=== PATIENT | male | born 1990 | race Caucasian/White ===

== ENCOUNTER 2017-01-20 17:59 | Emergency (ER) | payer BC ==
[2017-01-20] MEDS ORDERED: ALBUTEROL 8 GM INHALER INH STA (20:12)
[2017-01-20] MEDS ORDERED: ALBUTEROL NEB 2.5 MG/3 ML INH STA (20:12)
[2017-01-20] MEDS ORDERED: AZITHROMYCIN 250 MG TABLET PO STA (20:13)
[2017-01-20] MEDS ORDERED: predniSONE 20 MG TABLET PO STA (20:13)
[2017-01-20] MEDS ORDERED: predniSONE 20 MG TABLET ONE (20:17)
[2017-01-20] MEDS ORDERED: AZITHROMYCIN 250 MG TABLET PO ONE (20:17)
[2017-01-20] MEDS ORDERED: ALBUTEROL 8 GM INHALER INH ONE (20:26)
[2017-01-20] MEDS ORDERED: ALBUTEROL NEB 2.5 MG/3 ML INH ONE (20:26)
== END 2017-01-20 21:05 | disposition home or self-care (01) ==
DX: J18.9 Pneumonia, unspecified organism (principal); J45.21 Mild intermittent asthma with (acute) exacerbation; R03.0 Elevated blood-pressure reading, without diagnosis of hypertension; F17.200 Nicotine dependence, unspecified, uncomplicated
CPT/HCPCS: 71020; 94640; 94664; 99283; 99284; A9270; J7512; J7613

== ENCOUNTER 2017-02-10 19:34 | Emergency (ER) | payer BC ==
[2017-02-10] MEDS ORDERED: ALBUTEROL NEB 2.5 MG/3 ML INH STA (20:01)
[2017-02-10] MEDS ORDERED: predniSONE 20 MG TABLET PO STA (20:02)
--- NOTE | 2017-02-10 20:07 | ED Physician Documentation ---
PD HPI URI - Stated complaint Stated Complaint: SOA - Chief complaint Chief Complaint: Resp - History obtained from History obtained from: Patient - History of Present Illness Timing - onset: How many weeks ago (2) Timing duration: Weeks (2) Timing details: Gradual onset, Still present Pain level max: 0 Pain level now: 0 Associated symptoms: Nasal congestion, Rhinorrhea, Dry cough, Dyspnea (wheezing) . No: Fever, Chills, Sore throat, Chest pain Contributing factors: Sick contact Improves by: Rest, Medication (prednisone), MDI/nebulizer Worsened by: Activity Recently seen: Emergency Dept (recently seen and treated for pneumonia.) Review of Systems Constitutional: denies: Fever, Chills Ears: denies: Ear pain Nose: reports: Rhinorrhea / runny nose, Congestion Cardiac: denies: Chest pain / pressure Respiratory: reports: Cough, Wheezing GI: denies: Abdominal Pain, Nausea, Vomiting, Diarrhea Skin: denies: Rash Musculoskeletal: denies: Neck pain, Back pain Neurologic: denies: Headache PD PAST MEDICAL HISTORY - Past Medical History Past Medical History: Yes Respiratory: Asthma, Pneumonia - Past Surgical History Past Surgical History: Yes HEENT: Tonsil/Adenoidectomy - Present Medications Home Medications: Ambulatory Orders Medication Instructions Recorded Confirmed Albuterol Sulfate [Proventil Hfa 1 - 2 puffs IH Q4H PRN #1 01/20/17 02/10/17 Inhaler] [email or web address] Montelukast Sodium 10 mg PO DAILY #30 tablet 01/20/17 02/10/17 Albuterol Sulf [Ventolin Hfa 2 puffs INH Q4HR PRN #1 inhaler 02/10/17 Inhaler] Prednisone 40 mg PO DAILY #14 tablet 02/10/17 - Allergies Allergies/Adverse Reactions: Allergies Allergy/AdvReac Type Severity Reaction Status Date / Time fluticasone propionate * Allergy Hives Verified 02/10/17 19:38 [From Advair Diskus] salmeterol xinafoate * Allergy Hives Verified 02/10/17 19:38 [From Advair Diskus] - Social History Does the pt smoke?: Yes Smoking Status: Current every day smoker Does the pt drink ETOH?: No Does the pt have substance abuse?: No - Immunizations Immunizations are current?: Yes - POLST Patient has POLST: No PD ED PE NORMAL - Vitals Vital signs reviewed: Yes - General General: Alert and oriented X 3 - HEENT HEENT: PERRL, Ears normal, Moist mucous membranes, Pharynx benign - Neck Neck: Supple, no meningeal sign - Cardiac Cardiac: RRR - Respiratory Respiratory: No respiratory distress, Other (wheezing B) - Abdomen Abdomen: Soft, Non tender, Non distended - Derm Derm: Warm and dry - Neuro Neuro: Alert and oriented X 3 - Psych Psych: Normal mood, Normal affect Results - Vitals Vitals: Vital Signs - 24 hr 02/10/17 02/10/17 02/10/17 19:36 20:19 20:51 Temperature 36.2 C L Heart Rate 118 H 87 104 H Respiratory 18 18 18 Rate Blood Pressure 152/88 H 124/74 O2 Saturation 100 96 Oxygen O2 Source Room air - Rads (name of study) cxr Radiology: Prelim report reviewed, EMP read contemporaneously, See rad report ( Bibasilar bronchial wall thickening, could represent inflammatory or infectious bronchitis.) PD MEDICAL DECISION MAKING - ED course Complexity details: reviewed results, re-evaluated patient, considered differential, d/w patient ED course: Patient presents to the emergency department with what appears to be an upper respiratory infection causing an asthma exacerbation. Lungs improved after nebulizer treatment here. Will place on steroids for home. We will have him follow-up with his doctor for further evaluation and care. Prior pneumonia in the lingula has now cleared. No fevers. No hypoxia. Will hold antibiotics. Patient counseled regarding signs and symptoms for which I believe and urgent re -evaluation would be necessary. Patient with good understanding of and agreement to plan and is comfortable going home at this time This document was made in part using voice recognition software. While efforts are made to proofread this document, sound alike and grammatical errors may occur. Departure - Departure Disposition: 01 Home, Self Care Clinical Impression: Asthma Qualifiers: Asthma severity: unspecified severity Asthma complication type: with acute exacerbation Qualified Code(s): J45.901 - Unspecified asthma with (acute) exacerbation Upper respiratory tract infection Qualifiers: URI type: unspecified viral URI Qualified Code(s): J06.9 - Acute upper respiratory infection, unspecified Condition: Good Instructions: ED URI Viral Follow-Up: your,doctor in 1 week [Other] Prescriptions: Albuterol Sulf [Ventolin Hfa Inhaler] 2 puffs INH Q4HR PRN #1 inhaler PRN Reason: Wheezing Prednisone 40 mg PO DAILY #14 tablet Comments: Return if you worsen. Your pneumonia has cleared on your xray. Your blood pressure was elevated today on check in to the emergency department. This does not mean that you have hypertension, it is a common phenomenon to check into the emergency department and have elevated blood pressure. I recommend that you see your primary care physician within the week to have it rechecked when you're feeling better. Discharge Date/Time: 02/10/17 20:52
[2017-02-10] MEDS ORDERED: predniSONE 20 MG TABLET ONE (20:11)
[2017-02-10] MEDS ORDERED: ALBUTEROL NEB 2.5 MG/3 ML INH ONE (20:14)
--- NOTE | 2017-02-10 20:39 | XRAY Preliminary Report ---
Exam: XR Chest 2 View PA/LAT IMPRESSION: Bibasilar bronchial wall thickening, which could represent inflammatory or infectious bro nchitis. [facility] SITE ID: [id number]
--- NOTE | 2017-02-10 20:41 | XRAY Report ---
EXAM: CHEST RADIOGRAPHY EXAM DATE: 02/10/2017 08:14 PM. CLINICAL HISTORY: Cough and wheezing. COMPARISON: 01/20/2017. TECHNIQUE: 2 views. FINDINGS: Lungs/Pleura: Normal volumes. Bibasilar bronchial wall thickening. No focal consolidation, pleural ef fusion, or pneumothorax. Mediastinum: Normal cardiomediastinal contour. Other: The bones are unremarkable. IMPRESSION: Bibasilar bronchial wall thickening, which could represent inflammatory or infectious bro nchitis. [facility] Referring Provider Line: [phone] SITE ID: [id number]
[2017-02-10 20:51] VITALS: BP 124/74
== END 2017-02-10 20:52 | disposition home or self-care (01) ==
LOC: ED 19:34
DX: J45.901 Unspecified asthma with (acute) exacerbation (principal); J06.9 Acute upper respiratory infection, unspecified; B97.89 Other viral agents as the cause of diseases classified elsewhere; R03.0 Elevated blood-pressure reading, without diagnosis of hypertension; F17.200 Nicotine dependence, unspecified, uncomplicated
CPT/HCPCS: 71020; 94640; 99283; J7512; J7613

== ENCOUNTER 2018-07-30 05:30 | Emergency (ER) | payer BC, OTHER ==
[2018-07-30 05:39] VITALS: BP 134/75
[2018-07-30] MEDS ORDERED: cefTRIAXone 1 GM VIAL IM STA (05:52)
[2018-07-30] MEDS ORDERED: SULFAMETH/TRIMETH DS 800/160 MG TABLET PO STA (05:52)
[2018-07-30] MEDS ORDERED: LIDOCAINE 1% 2 ML VIAL SUBQ ONE (05:52)
--- NOTE | 2018-07-30 05:54 | ED Physician Documentation ---
History of Present Illness - Stated complaint Stated Complaint: LT LEG CELLULITIS WORSENED - Chief complaint Chief Complaint: Wound - History obtained from History obtained from: Patient - History of Present Illness Timing: How many days ago (several) Pain level max: 3 Pain level now: 3 - Additonal information Additional information: Patient is a 27-year-old male who presents to the emergency department with left lower extremity cellulitis diagnosed 2 days ago at a clinic. States the redness is worsening. He is on doxycycline currently. No fevers. No drainage. 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 Patient states his tetanus is up-to-date. Nothing makes it better or worse Review of Systems Constitutional: denies: Fever, Chills GI: denies: Vomiting Musculoskeletal: denies: Neck pain, Back pain PD PAST MEDICAL HISTORY - Past Medical History Past Medical History: Yes Respiratory: Asthma, Pneumonia - Past Surgical History Past Surgical History: Yes HEENT: Tonsil/Adenoidectomy - Present Medications Home Medications: Ambulatory Orders Medication Instructions Recorded Confirmed Cephalexin [Keflex] 500 mg PO Q6H #40 capsule 07/30/18 Sulfamethox/Trimeth 800/160 1 each PO BID #20 tablet 07/30/18 [Bactrim Ds 800/160] - Allergies Allergies/Adverse Reactions: Allergies Allergy/AdvReac Type Severity Reaction Status Date / Time fluticasone propionate * Allergy Hives Verified 07/30/18 05:35 [From Advair Diskus] salmeterol xinafoate * Allergy Hives Verified 07/30/18 05:35 [From Advair Diskus] - Social History Does the pt smoke?: Yes Smoking Status: Current every day smoker Does the pt drink ETOH?: No Does the pt have substance abuse?: No - Immunizations Immunizations are current?: Yes - POLST Patient has POLST: No PD ED PE NORMAL - Vitals Vital signs reviewed: Yes - General General: Alert and oriented X 3, No acute distress - HEENT HEENT: Moist mucous membranes - Derm Derm: Warm and dry - Extremities Extremities: Other (Left lower extremity - There is a 2 cm in diameter erythematous area, deep red that is mildly swollen. A scab is present in the middle. There is also a roofing layer surrounding erythema that is approximately 10 x 12 cm. This is over the left tibial area. The deep red portion is in the proximal aspect. Neurovascularly intact. No drainage) - Neuro Neuro: Alert and oriented X 3 - Psych Psych: Normal mood, Normal affect Results - Vitals Vitals: Vital Signs - 24 hr 07/30/18 05:35 Temperature 36.1 C L Heart Rate 115 H Respiratory 18 Rate Blood Pressure 134/75 H O2 Saturation 100 Oxygen O2 Source Room air PD MEDICAL DECISION MAKING - ED course Complexity details: considered differential, d/w patient ED course: Patient is a 27-year-old male who presents to the emergency department with what appears to be cellulitis and likely an early abscess. Bedside ultrasound was used and there is no drainable abscess at this time. Also no visible foreign body. Given Rocephin here and will change to Bactrim and Keflex. Patient counseled regarding signs and symptoms for which I believe and urgent re- evaluation would be necessary. Patient with good understanding of and agreement to plan and is comfortable going home at this time This document was made in part using voice recognition software. While efforts are made to proofread this document, sound alike and grammatical errors may occur. Departure - Departure Disposition: 01 Home, Self Care Clinical Impression: Cellulitis Qualifiers: Site of cellulitis: extremity Site of cellulitis of extremity: lower extremity Laterality: left Qualified Code(s): L03.116 - Cellulitis of left lower limb Condition: Good Instructions: ED Infec Skin Cellulitis Follow-Up: your,doctor in 2-3 days for wound check [Other] Prescriptions: Cephalexin [Keflex] 500 mg PO Q6H #40 capsule Sulfamethox/Trimeth 800/160 [Bactrim Ds 800/160] 1 each PO BID #20 tablet Comments: Stop the doxycycline and start the Bactrim and Keflex. Return if you worsen. This should improve over the next 24-36 hours. If you develop fevers or worsening redness, return for further evaluation. Discharge Date/Time: 07/30/18 06:04
== END 2018-07-30 06:04 | disposition home or self-care (01) ==
LOC: ED 05:30
DX: L03.116 Cellulitis of left lower limb (principal); F17.200 Nicotine dependence, unspecified, uncomplicated
CPT/HCPCS: 96372; 99283; A9270

== ENCOUNTER 2019-05-14 17:30 | Emergency (ER) | payer MEDICAID, OTHER ==
[2019-05-14 17:48] VITALS: BP 154/86
--- NOTE | 2019-05-14 20:18 | ED Physician Documentation ---
History of Present Illness - Stated complaint Stated Complaint: CANNOT OPEN L HAND - Chief complaint Chief Complaint: Ext Problem - History obtained from History obtained from: Patient - History of Present Illness Timing: Today - Additonal information Additional information: Patient is a right-handed 28-year-old male with previous carpal tunnel surgery and trigger finger release presenting with decrease in extension of third, fourth, and fifth fingers of the left hand. Patient reports that he awkwardly slept on the hand earlier today and it originally had paresthesias, which have now resolved.Patient denies other bony pain or deformity, well as any decrease in type mapper strength. No signs of infection or other skin changes. No other injury. No other improving or worsening factors noted. Review of Systems Musculoskeletal: denies: Extremity pain, Extremity swelling Neurologic: denies: Focal weakness, Numbness PD PAST MEDICAL HISTORY - Past Medical History Respiratory: Asthma, Pneumonia - Past Surgical History Past Surgical History: Yes HEENT: Tonsil/Adenoidectomy - Present Medications Home Medications: Ambulatory Orders Medication Instructions Recorded Confirmed No Known Home Medications 05/14/19 05/14/19 - Allergies Allergies/Adverse Reactions: Allergies Allergy/AdvReac Type Severity Reaction Status Date / Time fluticasone propionate * Allergy Hives Verified 07/30/18 05:35 [From Advair Diskus] salmeterol xinafoate * Allergy Hives Verified 05/14/19 17:48 [From Advair Diskus] - Social History Does the pt smoke?: Yes Smoking Status: Current every day smoker Does the pt drink ETOH?: No Does the pt have substance abuse?: No - Immunizations Immunizations are current?: Yes - POLST Patient has POLST: No PD ED PE NORMAL - Vitals Vital signs reviewed: Yes - General General: Alert and oriented X 3, No acute distress, Well developed/nourished - HEENT HEENT: Atraumatic, Moist mucous membranes - Neck Neck: Supple, no meningeal sign - Cardiac Cardiac: Strong equal pulses - Respiratory Respiratory: No respiratory distress - Derm Derm: Normal color, Warm and dry, No rash - Extremities Extremities: No deformity, No tenderness to palpate, Other (Left hand with intact type mapper strength, full range of motion except for slight decrease in extension of left third, fourth, and fifth fingers with intact sensation. Remainder of extremity unremarkable.) - Neuro Neuro: Alert and oriented X 3, No motor deficit, No sensory deficit - Psych Psych: Normal mood, Normal affect Results - Vitals Vitals: Vital Signs - 24 hr 05/14/19 17:46 Temperature 36.8 C Heart Rate 80 Respiratory 20 Rate Blood Pressure 154/86 H O2 Saturation 99 Oxygen O2 Source Room air PD MEDICAL DECISION MAKING - ED course Complexity details: considered differential, d/w patient ED course: Patient presenting with difficulty performing full extension of third, fourth, and fifth fingers of left hand.Patient had fallen asleep in an awkward position earlier today and originally had paresthesias that have now resolved and feel this is likely sequelae of ulnar nerve palsy. Do not feel patient is at risk for stroke or other intracranial pathology at this time. Feel that the symptoms will resolve on their own. No other bony abnormalities indicate dislocation or fracture. No signs of infection such as cellulitis, joint infection, lymphangitis, abscess. Do not have other concerns. Advised likely etiology and supportive cares for such, as well as return precautions and follow-up. Patient voiced understanding and is comfortable with discharge plan. 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 The symptoms should resolve on their own. Follow-up with primary care physician in next 2 to 3 days and return to ED sooner if experience worsening symptoms or have other concerns.
== END 2019-05-14 20:41 | disposition home or self-care (01) ==
LOC: ED 17:30
DX: G56.22 Lesion of ulnar nerve, left upper limb (principal); F17.200 Nicotine dependence, unspecified, uncomplicated
CPT/HCPCS: 99281; 99284